=== PATIENT | male | born 1950 | race Caucasian/White ===

== ENCOUNTER → 2016-06-23 | Day surgery (SDC) | payer MEDICARE ==
[~2016-06-23] VITALS: Ht 177.8 cm; Wt 96.5 kg
[~2016-06-23] MED LIST: ASPI81TA81; ATOR40TA16 PO; BUPIVACAINE HCL PF 0.5% 30 ML VIAL INFIL ONE; BUPIVACAINE HCL PF 0.5% 30 ML VIAL ONE; CARV3.12 PO; CEPH-460 PO; DIGO0.12 PO; GLIP5TAB8 PO; ISOS20TA PO; LACTATED RINGER'S 1000 ML INJ 1,000 ML ONE; LEVO112T2 PO; LIDOCAINE HCL 2% 50 ML VIAL INFIL ONE; LIDOCAINE HCL 2% 50 ML VIAL ONE; METF1000 PO; MIDAZOLAM HCL 2 MG/2 ML VIAL ONE; NEOMYCIN/POLYMYXIN 1 ML G.U. IRRIGANT IR ONE; ONDANSETRON HCL 4 MG/2 ML VIAL IV PUSH ONE; OXYC1TAB35 PO; OXYC20TA17 PO; PERC5TAB12 PO; PROPOFOL 200 MG/20 ML AMP IV ONE; SODIUM CHLORIDE 0.9% INJ 50 ML ONE; ZETI10TA5 PO; ceFAZolin INJ 1,000 MG VIAL ONE
[2016-06-23 08:47] VITALS: BP 136/68; PULSE 61; RESP 16; TEMP 98; O2SAT 98
[2016-06-23 08:50] VITALS: PULSE 61
[2016-06-23 09:25] VITALS: PULSE 61
[2016-06-23 09:27] LABS: HEMATOCRIT 35.1 % (39.0-51.0); MEAN CELL VOLUME 87.6 FL (80.0-100.0); MEAN CORPUSCULAR HGB CONC 34.2 % (32.0-36.0); PLATELET COUNT 172 TH/MM3 (150-450); RED BLOOD COUNT 4.01 MIL/MM3 (4.50-5.90); RED CELL DISTRIBUTION WIDTH 13.8 % (11.6-17.2); REVIEW FLAG FINAL; WHITE BLOOD COUNT 6.9 TH/MM3 (4.0-11.0)
[2016-06-23] MEDS: ceFAZolin INJ 1,000 MG VIAL ONE ×2 (11:15→11:25)
--- NOTE | 2016-06-23 13:17 | HHI.PR ---
Immediate Post Op Note Procedure Date: Jun 23, 2016 Pre Op Diagnosis: (1) Fracture of left distal radius Post Op Diagnosis: Surgeon: Lloyd Ledezma III Machine Feeder(s): RP Procedure: Left distal radius ORIF Left BR tenotomy Use of image intensifier Anesthesia: General, Regional Block Drains: None IVF Patient to: PACU Patient Condition: Good Implant/Devices: SEE IMPLANT LOG (if applicable) Llody Ledezma III, MD Jun 23, 2016 13:17
[2016-06-23 15:00] VITALS: BP 117/52; PULSE 83; RESP 16; TEMP 97; O2SAT 96
--- NOTE | 2016-06-23 18:19 | EKG ---
Date Performed: 06/23/2016 Time Performed: 08:54:45 PTAGE: 66 years EKG: Sinus rhythm NONSPECIFIC T-WAVE ABNORMALITY BORDERLINE ECG NO PREVIOUS TRACING DOCTOR: Clifford Morales Interpretating Date/Time 06/23/2016 18:17:48
--- NOTE | 2016-06-24 07:29 | MP ---
cc: LLOYD LEDEZMA III, M.D. DATE OF OPERATION 06/23/2016 PREOPERATIVE DIAGNOSIS Left distal radius fracture. PROCEDURE 1. Left distal radius open reduction internal fixation of multiple fragments. 2. Left brachial radialis tenotomy. 3. Use of image intensifier. SURGEON Lloyd Ledezma III, MD PROCEDURE The patient was brought to the operating, placed supine on the operating table. After the correct side and site of surgery were verified by members of each team in the room multiple times including the patient and myself and, after adequate preoperative markings, preoperative written consent were verified by everyone and, after preoperative time-out was performed to everyone's satisfaction and, after adequate general anesthesia, supraclavicular lines were achieved and the left upper extremity prepped and draped in traditional sterile surgical fashion using the mini C-arm. The intended procedure was verified. Closed reduction was not possible. The limb was exsanguinated with a gentle Niles wrap. A highly placed, well-padded tourniquet was inflated 200 mmHg for a total of 65 minutes. A longitudinally oriented incision on the volar aspect of the wrist between the flexor carpi radialis tendon and the radial artery was made and carried down through skin and subcutaneous tissue. Blunt dissection was performed as well as some sharp dissection. Bipolar electrocautery was used as needed. The pronator quadratus was elevated off of the volar aspect of the distal radius. The radial artery was retracted in the radial direction opposite from the flexor carpi radialis which was retracted in the ulnar direction. The fracture was identified. It did appear to be intraarticular as well as multiple fragments volarly to the radial styloid. Thorough irrigation. In-line traction was then held manually. The pieces were all manipulated back into place actually quite well and some of the provisional fixation was held with a 0.062 K-wire in through the radial styloid and then using the volar buttress plate just held in place with K-wires from the [employer] distal radius set. Locking screws were all then placed securing individual small fragments distally and this was all done under mini-fluoroscopic C-arm guidance and then the plate was secured proximally bringing the distal radius out to length as well as almost completely restoring the volar tilt and the radial inclination. Screws were tailored to length in the usual fashion. Most were locking. Passive range of motion examination was performed and was full and unrestricted and had no crepitance at all palpable. Thorough irrigation was performed again. The final x-rays were obtained. Of note the brachial radialis tendon had to be elevated off of the radial styloid for reduction to take place and this was done with a periosteal elevator. Thorough irrigation was performed again. The pronator quadratus was secured overlying most of the hardware especially distally using 3-0 Vicryl sutures in overlay fashion. The axillary tourniquet was released prior to the closure and the hand and all the fingers became immediately soft, pink and warm and had brisk capillary refill of less than 2 seconds. The radial artery became soft, pink and full. The deep subcutaneous tissues were reapproximated using 3-0 Vicryl sutures and then the skin edges were reapproximated using interrupted and running 4-0 nylon sutures. The hand and arm were thoroughly cleansed and dried. Final x-rays were obtained and were very poor reproductions but they were kept anyway. The patient was awakened from anesthesia and transported to the Post-Anesthesia Care Unit awake and in stable condition at the end of the case. Sponge, needle, instrument counts were correct at the end of the case as reported by the nurses in the room. MD NIMCO Pascual III/MASTER /1:33 PM /7:14 AM
== END | disposition home or self-care (01) ==
LOC: CSDC 08:10
PROVIDERS: ATTEND Orthopaedic Surgery Hand Surgery
DX: S52.502A Unspecified fracture of the lower end of left radius, initial encounter for closed fracture (principal); I10 Essential (primary) hypertension; E78.5 Hyperlipidemia, unspecified; W10.9XXA Fall (on) (from) unspecified stairs and steps, initial encounter
CPT/HCPCS: 01830; 25290; 25608; 36415; 64415; 76000; 85027; 93005; C1713; J0690; J2250; J2405; J7120